=== PATIENT | female | born 1935 | race Caucasian/White ===

== ENCOUNTER 2016-12-21 06:11 | Day surgery (SDC) | payer OTHER ==
[~2016-12-21] VITALS: Ht 154.9 cm; Wt 81.9 kg
[~2016-12-21 06:11] MED LIST: ASPI325T PO; ATEN-100 PO; ATOR40TA PO; COZA50TA PO; ERYTOIN10 OP; GLIM2TAB PO; METF-324 PO; OXYB5TAB PO; SPIR50TA21 PO; ULTR50TA PO; ZOLO50TA PO
[2016-12-21 07:13] VITALS: BP 177/82; PULSE 62; RESP 18; TEMP 98; O2SAT 93
[2016-12-21 07:13] LABS: BASOPHIL % 0.5 % (0.0-2.0); EOSINOPHIL # 0.1 TH/MM3 (0-0.4); EOSINOPHIL % 2.1 % (0.0-4.0); HEMATOCRIT 37.8 % (35.0-46.0); HEMO FLAGS DIFF FINAL; LYMPH % 26.5 % (9.0-44.0); LYMPHOCYTE # 1.7 TH/MM3 (1.0-4.8); MEAN CELL VOLUME 88.2 FL (80.0-100.0); MEAN CORPUSCULAR HEMOGLOBIN 30.1 PG (27.0-34.0); MEAN CORPUSCULAR HGB CONC 34.1 % (32.0-36.0); MONO % 7.7 % (0.0-8.0); NEUT % 63.2 % (16.0-70.0); PLATELET COUNT 261 TH/MM3 (150-450); RED BLOOD COUNT 4.29 MIL/MM3 (4.00-5.30); RED CELL DISTRIBUTION WIDTH 13.7 % (11.6-17.2); WHITE BLOOD COUNT 6.3 TH/MM3 (4.0-11.0)
[2016-12-21 07:22] LABS: APTT (PATIENT) 24.9 SEC (24.3-30.1); PROTHROMBIN TIME - PATIENT 10.5 SEC (9.8-11.6)
[2016-12-21] MEDS ORDERED: METF1000 PO (07:28)
[2016-12-21] MEDS ORDERED: ASPI325T PO (07:28)
[2016-12-21] MEDS ORDERED: CALC600T4 PO (07:28)
[2016-12-21] MEDS ORDERED: OXYB5TAB PO (07:28)
[2016-12-21] MEDS ORDERED: MULT1TAB84 PO (07:28)
[2016-12-21] MEDS ORDERED: SERT-129 PO (07:28)
[2016-12-21] MEDS ORDERED: SPIR50TA PO (07:28)
[2016-12-21] MEDS ORDERED: AMLO2.5T PO (07:28)
[2016-12-21] MEDS ORDERED: ATEN50TA PO (07:28)
[2016-12-21] MEDS ORDERED: GLIM4TAB PO (07:28)
[2016-12-21] MEDS ORDERED: SITA1TAB2 PO (07:28)
[2016-12-21] MEDS ORDERED: ATOR40TA16 PO (07:28)
[2016-12-21] MEDS ORDERED: LOSA100T PO (07:28)
[2016-12-21] MEDS ORDERED: FENO48TA PO (07:28)
[2016-12-21 07:31] LABS: BICARBONATE 24.5 MEQ/L (21.0-32.0); POTASSIUM 4.2 MEQ/L (3.5-5.1)
[2016-12-21] MEDS ORDERED: NS 1000P @30 MLS/HR (KVO) IV SCH (08:15)
[2016-12-21] MEDS ORDERED: diphenhydrAMINE HCL 50 MG CAP PO SCH (08:15)
[2016-12-21] MEDS ORDERED: HEPARIN-NS/PF INJ 500 ML ONE (08:44)
[2016-12-21] MEDS ORDERED: MIDAZOLAM HCL 2 MG/2 ML VIAL ONE (08:57)
[2016-12-21] MEDS ORDERED: VERAPAMIL HCL 5 MG/2 ML VIAL ONE (08:57)
[2016-12-21] MEDS ORDERED: HEPARIN SODIUM - IV 10,000 UNITS/10 ML VIAL ONE (08:57)
[2016-12-21] MEDS ORDERED: NITROGLYCERIN INJ 5 ML ONE (08:59)
[2016-12-21] MEDS ORDERED: SODIUM CHLORIDE 0.9% FLUSH 5 ML FLUSH IVF PRN (10:15)
[2016-12-21] MEDS ORDERED: MISC INFORMATION XX ONE (10:15)
[2016-12-21] MEDS ORDERED: SODIUM CHLORIDE 0.9% FLUSH 5 ML FLUSH IV FLUSH PRN (10:30)
[2016-12-21] MEDS ORDERED: IOHEXOL 350 MG/ML 50 ML BTL (for Cath Lab) OTHER ONE ×2 (10:33→10:39)
--- NOTE | 2016-12-21 12:16 | RADRPT ---
EXAM DATE/TIME: 12/21/2016 11:14 [facility] COMPARISON: No previous studies available for comparison. INDICATIONS: Pre-op for aortic valve replacement. RADIATION DOSE: 7.07 CTDIvol (mGy) MEDICAL HISTORY: Hypertension. Cardiovascular disease Diabetes SURGICAL HISTORY: None. ENCOUNTER: Initial ACUITY: 1 day PAIN SCALE: 0/10 LOCATION: Chest TECHNIQUE: Volumetric scanning of the chest was performed. Using automated exposure control and adjustment of t he mA and/or kV according to patient size, radiation dose was kept as low as reasonably achievable to obtain optimal diagnostic quality images. FINDINGS: The heart is enlarged. Coronary artery calcifications are noted. Calcification involving the aortic valve is also noted. The ascending thoracic aorta measures 3.9 cm AP by 3.9 cm transverse dimension. Scattered at electasis and/or fibrotic scarring is noted within the lung bases. There is no alveolar consolidation. No pul monary edema is noted. No pulmonary nodule or mass is noted. There is a 18 mm calcified density within the right lobe of the liver posteriorly consistent with possible granuloma. High density is noted within the collecting sy stems of the kidneys bilaterally which has the appearance of contrast although the patient does not appear to have had contrast administration on recent studies. Differential includes contrast in the collection systems from rece nt contrast enhanced studies from an outside institution or possible calcified staghorn calculi. There is promin ence of the left adrenal gland measuring 2.5 x 2.1 cm. Degenerative changes and scoliosis of the thoracolumbar spine are noted. CONCLUSION: 1. Calcified aortic valve. Ascending thoracic aorta measures 3.9 cm AP by 3.9 cm transverse dimensio n. 2. Cardiomegaly and coronary artery calcifications. 3. Scattered fibrotic scarring and/or atelectasis within the lung bases. 4. High density opacifying the visualized portions of the renal collecting systems raising possibili ty of contrast although the patient has no definite recent studies at [place] which IV contrast admin istration. Differential includes recent outside contrast enhanced study or calcified staghorn calcul i. 5. Left adrenal nodule measuring 2.5 x 2.1 cm consistent with possible adrenal adenoma. 6. An 18 mm calcification within the posterior aspect of the right lobe of the liver consistent with probable granuloma. 7. Degenerative changes and scoliosis of the thoracolumbar spine. Vince Sin MD on December 21, 2016 at 11:56 Board Certified Radiologist. This report was verified electronically.
[2016-12-21 12:19] LABS: HEMOGLOBIN A1a 1.2 %; HEMOGLOBIN A1b 1.4 %; HEMOGLOBIN Ao 79.2 %; HEMOGLOBIN F 1.7 %; HEMOGLOBIN LA1C 3.2 %; HEMOGLOBIN P3 5.1 %
--- NOTE | 2016-12-21 12:37 | MA ---
cc: JOHNYESTEEDANIELA DATE 12/21/2016 PROCEDURE DATE OF 1935 PROCEDURES PERFORMED 1. Left heart catheterization 2. Right heart catheterization 3. LV/AO hemodynamics INDICATION Severe symptomatic aortic stenosis/preoperative evaluation APPROACH Right transradial and right basilic vein PROCEDURE DESCRIPTION Consent signed. The patient was brought into the cardiac pathology laboratory director in a fasting state. The right arm was prepped and draped in a sterile fashion. Using 1% lidocaine for local anesthesia and a micropuncture kit, an 8-Ugandan sheath was inserted into the right basilic vein and a 6-Ugandan sheath was inserted into the right radial vein. Then a [place]ricket was floated into wedge from the basilic vein, hemodynamics recorded, followed by blood samples for calculation of cardiac outputs. After finishing the right heart, we proceeded with the left heart cath. Selective right and left coronary angiography was performed with a JR-4, 5-Ugandan diagnostic catheter and a JL-3.5 diagnostic catheter. Angiography was taken in multiple views. The aortic valve was crossed in with an AL-1 and a stay-straight angle wire. Then the wire was exchanged for an Amplatz stiff wire and the 6-Ugandan dual lumen pigtail was advanced over a wire to the left ventricle. Simultaneous left ventricle and aortic pressures were recorded followed by a pullback. The patient tolerated well procedure well without complications. Estimated blood loss less than 50 cc Total contrast used 60 cc. The access sites were closed with a TR band and manual pressure. RESULTS Right heart cath pressures: The wedge pressure 11/8 mean 6. The main pulmonary artery 20/6 mean 13. The right ventricle 24/5 mean 5. The right atrium 8/6 mean 4. The left ventricular pressure was 214/14 with an LVEDP of 21. Ao lunfeuca201/[id number] mean of 104. The patient's mean gradient across the well was 45. The cardiac output was calculated to be 5.3. The aortic valve area by Hakki equation is 0.79. ANGIOGRAPHIC RESULTS RIGHT CORONARY ARTERY 1. The right coronary artery is a dominant vessel. It is tortuous with minimal luminal irregularities and LUL-III flow. The PDA is tortuous with minimal luminal irregularities and patent. 2. The left main is open, minimal calcification, no obstructive coronary artery disease. 3. The LAD is a transapical vessel. It has a 70% lesion proximally right at the takeoff of the first diagonal. The LAD wraps around has minimal irregularities distally. The first diagonal has an ostial 40% lesion. 4. The left circumflex is patent with LUL-III flow. It has nonobstructive CAD and the first of OM1 is patent. 5. The ramus is a prominent ramus. It is patent with nonobstructive coronary artery disease. CONCLUSION 1. Severe aortic stenosis with a calculated valve area of 0.79. 2. Single vessel coronary artery disease with a significant stenosis in the proximal LAD. 3. STS 4.1% RECOMMENDATIONS 1. Continue mini AVR vs. TAVR evaluation. 2. Continue aggressive medical management for CAD. 3. F/U with Dr. Daniela Mckay MD REJI Viera/CARISSA /10:12 AM /12:22 PM ANTONELLA
--- NOTE | 2016-12-21 14:30 | RADRPT ---
EXAM DATE/TIME: 12/21/2016 12:26 [facility] COMPARISON: CT THORAX W/O CONTRAST, December 21, 2016, 11:14. INDICATIONS : PreOp aortic valve replacement. MEDICAL HISTORY : Hypertension. Hypercholesterolemia. Hernia, hiatal. Coronary artery disease. Aortic stenosis. Diabete s, type II. Chronic kidney disease, stage III. SURGICAL HISTORY : Tonsillectomy. Cardiac catheterization. ENCOUNTER: Initial ACUITY: 1 day PAIN SCORE: 0/10 LOCATION: Bilateral neck PEAK SYSTOLIC VELOCITIES (cm/sec): ICA/CCA RATIO: Right: 2.0 Left: 2.0 ICA: Right: 128 Left: 118 CCA: Right: 64 Left: 58 ECA: Right: 57 Left: 67 VERTEBRAL: Right: 55 antegrade Left: 44 antegrade Elevated flow velocities and ICA/CCA ratios have been found to correlate with increased degrees of vessel stenosis, calculated as percentage of diameter relative to a normal segment of distal ICA/CCA FINDINGS: RIGHT CAROTID: There is elevated ratios with calcific plaque. Velocities are within normal limits. LEFT CAROTID: Ratios are elevated as well. Velocities are within normal limits. VERTEBRAL ARTERIES: Antegrade flow is seen in both vertebral arteries. MISCELLANEOUS: None. CONCLUSION: Elevated ratios bilaterally with normal Doppler velocities. CT angiography or MR ang iography offer more information. Jonas Stallings MD FACR on December 21, 2016 at 14:25 Board Certified Radiologist. This report was verified electronically.
--- NOTE | 2016-12-21 14:50 | EC ---
Study Study Date:12/21/2016 STUDY CONCLUSIONS SUMMARY - Left ventricle: The cavity size was normal. Wall thickness was normal. Systolic function was mildly reduced. The estimated ejection fraction was in the range of 45% to 50%. Wall motion was normal; there were no regional wall motion abnormalities. - Aortic valve: Calcified annulus. Trileaflet; normal thickness leaflets. Moderate to severe regurgitation. Valve area: 1.07cm^2 (Vmax). - Mitral valve: Mildly calcified annulus. - Pulmonic valve: Peak gradient: 16mm Hg (S). If LV function is below 40, please consider prescribing an ACEI or ARB or document rationale for non-use. PROCEDURE DATA STUDY STATUS: Elective. Procedure: Transthoracic echocardiography. Image quality was good. Scanning was performed from the parasternal, apical, and subcostal acoustic windows. Study completion: The patient tolerated the procedure well. Transthoracic echocardiography. M-mode, complete 2D, complete spectral Doppler, and color Doppler. Patient status: Inpatient. CARDIAC ANATOMY LEFT VENTRICLE: The cavity size was normal. Wall thickness was normal. Systolic function was mildly reduced. The estimated ejection fraction was in the range of 45% to 50%. Wall motion was normal; there were no regional wall motion abnormalities. AORTIC VALVE: Poorly visualized. Calcified annulus. Trileaflet; normal thickness leaflets. Doppler: Transvalvular velocity was increased more than expected, due to stenosis. There was no stenosis. Moderate to severe regurgitation. Valve area: 1.07cm^2 (Vmax). Mean gradient: 27mm Hg (S). Peak gradient: 42mm Hg (S). AORTA: Aortic root: The aortic root was normal in size. MITRAL VALVE: Mildly calcified annulus. Doppler: Transvalvular velocity was within the normal range. There was no evidence for stenosis. No regurgitation. Peak gradient: 3mm Hg (D). LEFT ATRIUM: The atrium was normal in size. RIGHT VENTRICLE: The cavity size was normal. Wall thickness was normal. PULMONIC VALVE: Doppler: Transvalvular velocity was within the normal range. There was no evidence for stenosis. No regurgitation. Peak gradient: 16mm Hg (S). TRICUSPID VALVE: Structurally normal valve. Doppler: Transvalvular velocity was within the normal range. No regurgitation. PULMONARY ARTERY: The main pulmonary artery was normal-sized. Systolic pressure was within the normal range. RIGHT ATRIUM: The atrium was normal in size. PERICARDIUM: There was no pericardial effusion. SYSTEMIC VEINS: Inferior vena cava: The vessel was normal in size. BASIC MEASUREMENTS ADULT NORMAL Left ventricle LV internal dimension, ED, chordal level, 47.5 mm 43-52 PLAX LV internal dimension, ES, chordal level, 37.9 mm 23-38 PLAX Fractional shortening, chordal level, PLAX *20 % >29 LV posterior wall thickness, ED 8.79 mm IVS/LVPW ratio, ED 0.93 <1.3 Ventricular septum Septal thickness, ED 8.14 mm Aortic valve Leaflet separation 19 mm 15-26 BASIC MEASUREMENTS ADULT NORMAL Aortic valve Leaflet separation 19 mm 15-26 Aorta Root diameter, ED 21 mm 20-37 Left atrium Anterior-posterior dimension, ES 36 mm 19-40 LA/aortic root ratio 1.71 DOPPLER MEASUREMENTS ADULT NORMAL Main pulmonary artery Pressure, S 14 mm Hg =30 Pressure, ED 14 mm Hg Aortic valve Peak velocity, S 325 cm/s Mean velocity, S 244 cm/s VTI, S 83.8 cm Mean gradient, S 27 mm Hg Peak gradient, S 42 mm Hg Valve area, Vmax 1.07 cm^2 Regurgitant velocity, ED 339 cm/s Regurgitant deceleration 629 cm/s^2 Regurgitant pressure half-time 1580 ms Regurgitant gradient, ED 46 mm Hg Mitral valve Peak E-wave velocity 85.9 cm/s Peak A-wave velocity 91.8 cm/s Deceleration time *246 ms 150-230 Peak gradient, D 3 mm Hg Peak E/A ratio 0.9 Maximal regurgitant velocity 234 cm/s Tricuspid valve Regurgitant peak velocity 217 cm/s Peak RV-RA gradient, S 19 mm Hg Maximal regurgitant velocity 217 cm/s Systemic veins Estimated CVP 10 mm Hg Right ventricle RV pressure, S *30 mm Hg <30 Pulmonic valve Peak velocity, S 197 cm/s Peak gradient, S 16 mm Hg Regurgitant velocity, ED 105 cm/s LEGEND: Mean values are shown as u=mean value. Asterisk (*) caro values outside specified normal range. Prepared and signed by Eric Santana [id number]
--- NOTE | 2016-12-21 15:34 | RADRPT ---
EXAM DATE/TIME: 12/21/2016 11:31 [facility] COMPARISON: No previous studies available for comparison. INDICATIONS : Evaluation for femoral cannulation. MEDICAL HISTORY : Hypercholesterolemia. Hypertension. Hernia, hiatal. Coronary artery disease. Aortic stenosis. Diabete s, type II. Chronic kidney disease, stage III. SURGICAL HISTORY : Tonsillectomy. Cardiac catheterization. ENCOUNTER: Initial ACUITY: 1 day PAIN SCORE: 0/10 LOCATION: Bilateral legs. AREA EVALUATED: Bilateral legs. FINDINGS: RT EIA 88 cm/s BODY DIE MAKER 84 cm/s DPA 68 cm/s SFA PROX 93 cm/s MID 84 cm/s DIST 78 cm/s POP 62 cm/s LT EIA 170 cm/s BODY DIE MAKER 139 cm/s DPA 83 cm/s SFA PROX 156 cm/s MID 91 cm/s DIST 113 cm/s POP 71 cm/s There is triphasic flow in all vessels. 3 vessels are identified below the knee. CONCLUSION: Negative arterial evaluation of the lower extremities. Clif Soler MD on December 21, 2016 at 15:26 Board Certified Radiologist. This report was verified electronically.
[2016-12-21 17:37] LABS: BACTERIA, URINE OCC /hpf; BLOOD, URINE NEG (NEG); COMMENT (UR) CULT NOT INDICATED; CULTURE IF INDICATED CULT NOT INDICATED; GLUCOSE,URINE TRACE mg/dL (NEG); KETONE, URINE NEG (NEG); NITRITE,URINE NEG (NEG); SQUAMOUS EPITHELIAL CELL URINE <1 /hpf (0-5); URINE COLOR YELLOW (YELLW/STRAW)
[2016-12-21] MEDS ORDERED: SODIUM CHLORIDE 0.9% FLUSH 5 ML FLUSH IVF SCH (21:00)
[2016-12-21] MEDS ORDERED: SODIUM CHLORIDE 0.9% FLUSH 5 ML FLUSH IV FLUSH SCH (21:00)
--- NOTE | 2016-12-23 12:58 | EKG ---
Date Performed: 12/21/2016 Time Performed: 07:17:22 PTAGE: 81 years EKG: Sinus bradycardia Leftward axis Possible anterior infarct - age undetermined Inferior T wav e changes are nonspecific Compared to prior tracing no significant change Abnormal ECG PREVIOUS TRACING : 04/27/2015 11.10 DOCTOR: Norm Adkins Interpretating Date/Time 12/23/2016 12:54:18
--- NOTE | 2017-01-21 13:24 | RADRPT ---
EXAM DATE/TIME: 12/21/2016 11:31 [facility] Corrected on: January 21, 2017; corrected exam name GER COMPARISON: No previous studies available for comparison. INDICATIONS : Evaluation for femoral cannulation. MEDICAL HISTORY : Hypercholesterolemia. Hypertension. Hernia, hiatal. Coronary artery disease. Aortic stenosis. Diabete s, type II. Chronic kidney disease, stage III. SURGICAL HISTORY : Tonsillectomy. Cardiac catheterization. ENCOUNTER: Initial ACUITY: 1 day PAIN SCORE: 0/10 LOCATION: Bilateral legs. AREA EVALUATED: Bilateral legs. FINDINGS: RT EIA 88 cm/s LEAD MANUFACTURING ENGINEERING TECH 84 cm/s DPA 68 cm/s SFA PROX 93 cm/s MID 84 cm/s DIST 78 cm/s POP 62 cm/s LT EIA 170 cm/s LEAD MANUFACTURING ENGINEERING TECH 139 cm/s DPA 83 cm/s SFA PROX 156 cm/s MID 91 cm/s DIST 113 cm/s POP 71 cm/s There is triphasic flow in all vessels. 3 vessels are identified below the knee. CONCLUSION: Negative arterial evaluation of the lower extremities. Clif Soler MD on December 21, 2016 at 15:26 Board Certified Radiologist. This report was verified electronically. DR [employer] on January 21, 2017 at 13:23 Board Certified Radiologist. This report was verified electronically.
== END 2016-12-21 17:50 | disposition home or self-care (01) ==
LOC: HCAT 06:11 → HDIC 06:11 → HCAT 17:50
PROVIDERS: ATTEND Radiology Vascular & Interventional Radiology
DX: I35.0 Nonrheumatic aortic (valve) stenosis (principal); I25.10 Atherosclerotic heart disease of native coronary artery without angina pectoris; E11.22 Type 2 diabetes mellitus with diabetic chronic kidney disease; I12.9 Hypertensive chronic kidney disease with stage 1 through stage 4 chronic kidney disease, or unspecified chronic kidney disease; N18.3 Chronic kidney disease, stage 3 (moderate); E78.00 Pure hypercholesterolemia, unspecified; Z79.84 Long term (current) use of oral hypoglycemic drugs
CPT/HCPCS: 71250; 80048; 81001; 82810; 83036; 85025; 85610; 85730; 87641; 93005; 93306; 93456; 93880; 93925; C1769; C1893; J1644; J2250; J3010; J7030; Q0163; 76999; Q9967

== ENCOUNTER → 2017-01-21 | Outpatient (CLI) | payer OTHER ==
[~2017-01-21] MED LIST changes: +AMLO2.5T PO; -ATEN-100 PO; +ATEN50TA PO; -ATOR40TA PO; +ATOR40TA16 PO; +CALC600T4 PO; -COZA50TA PO; -ERYTOIN10 OP; +FENO48TA PO; -GLIM2TAB PO; +GLIM4TAB PO; +IOHEXOL 350 MG/ML 10 ML VIAL (for RAD DIAG) IV ONE; +LOSA100T PO; -METF-324 PO; +METF1000 PO; +MULT1TAB84 PO; +SERT-129 PO; +SITA1TAB2 PO; +SPIR50TA PO; -SPIR50TA21 PO; -ULTR50TA PO; -ZOLO50TA PO
--- NOTE | 2017-01-21 15:06 | RADRPT ---
EXAM DATE/TIME: 01/21/2017 13:48 [facility] COMPARISON: No previous studies available for comparison. INDICATIONS : Evaluate aortic calcification and femoral access for cannulation. RADIATION DOSE: 11.82 CTDIvol (mGy) MEDICAL HISTORY : Cardiovascular disease. Diabetes mellitus type 2. SURGICAL HISTORY : None. ENCOUNTER: Initial ACUITY: 1 day PAIN SCALE: 0/10 LOCATION: Right anterior TECHNIQUE: Volumetric scanning was performed using a multi-row detector CT scanner. The data was post processed with a variety of visualization algorithms including full volume maximum intensity pr ojection, multi-planar sliding thin slab reformation, curved planar reformation, and surface renderin g techniques. Using automated exposure control and adjustment of the mA and/or kV according to patie nt size, radiation dose was kept as low as reasonably achievable to obtain optimal diagnostic quality images. FINDINGS: Scans were obtained from the thoracic inlet through the common femorals. There are no suspicious lung lesions identified. There is mild compensated cardiomegaly. Moderate c oronary artery calcifications are seen including calcifications in both the LAD, circumflex and right coronary. Calcifications are seen in the ascending and descending aorta. There is no aneurysmal dilatation. The right common iliac, external iliac and common femoral are widely patent. The left common iliac, external iliac and common femoral are widely patent. There is moderate tortuo sity on the left when compared to the right secondary to scoliosis. The liver, spleen, pancreas, adrenals and kidneys are unremarkable. There is no ascites or adenopathy. The bladder is unremarkable. CONCLUSION: Moderate atherosclerotic vascular disease as described above. Jonas Stallings MD FACR on January 21, 2017 at 14:22 Board Certified Radiologist. This report was verified electronically.
== END ==
LOC: HRAD 11:42
PROVIDERS: ATTEND Thoracic Surgery (Cardiothoracic Vascular Surgery)
DX: I35.0 Nonrheumatic aortic (valve) stenosis (principal)
CPT/HCPCS: 74174; Q9967

== ENCOUNTER → 2017-02-27 | Outpatient (CLI) | payer OTHER ==
[~2017-02-27] MED LIST changes: -IOHEXOL 350 MG/ML 10 ML VIAL (for RAD DIAG) IV ONE
--- NOTE | 2017-02-27 11:52 | RADRPT ---
EXAM DATE/TIME: 02/27/2017 11:33 [facility] COMPARISON: CHEST SINGLE AP, December 22, 2013, 12:07. INDICATIONS : Evaluate for pneumonia, pneumothorax, and communicable diseases. Pre-op aortic valv e replacement MEDICAL HISTORY : Diabetes mellitus type II. Hypertension SURGICAL HISTORY : None. ENCOUNTER: Initial ACUITY: 1 day PAIN SCORE: 0/10 LOCATION: chest FINDINGS: PA and lateral views of the chest demonstrate the lungs to be symmetrically aerated without evidence of mass, infiltrate or effusion. There is symmetric and diffuse prominence of interstitial markings throughout both lungs. The cardiomediastinal contours are unremarkable with stable tortuosity descen ding thoracic aorta. Moderate S-shaped scoliosis in the lumbar spine.. CONCLUSION: Mild interstitial prominence. No focal infiltrates seen. Samson Ojeda MD on February 27, 2017 at 11:49 Board Certified Radiologist. This report was verified electronically.
--- NOTE | 2017-02-27 12:20 | RADRPT ---
EXAM DATE/TIME: 02/27/2017 11:45 [facility] COMPARISON: US CAROTID ARTERIES, December 21, 2016, 12:26. INDICATIONS : Preop heart valve surgery. MEDICAL HISTORY : Hypertension. Diabetes mellitus type 2. SURGICAL HISTORY : Tonsillectomy. ENCOUNTER: Initial ACUITY: 1 day PAIN SCORE: 0/10 LOCATION: Bilateral neck PEAK SYSTOLIC VELOCITIES (cm/sec): ICA/CCA RATIO: Right: 1.8 Left: 1.3 ICA: Right: 91 Left: 79 CCA: Right: 51 Left: 61 ECA: Right: 48 Left: 41 VERTEBRAL: Right: 55 antegrade Left: 45 antegrade Elevated flow velocities and ICA/CCA ratios have been found to correlate with increased degrees of vessel stenosis, calculated as percentage of diameter relative to a normal segment of distal ICA/CCA FINDINGS: RIGHT CAROTID: There is minimal plaque measured region of the carotid bulb without significant stenosis. The wavefo joanna are within normal limits. LEFT CAROTID: No significant stenosis is visualized. The waveforms are within normal limits. VERTEBRAL ARTERIES: Antegrade flow is seen in both vertebral arteries. CONCLUSION: Dynamic profile both carotids is characteristic of less than 50% stenosis. Samson Ojead MD on February 27, 2017 at 12:17 Board Certified Radiologist. This report was verified electronically.
--- NOTE | 2017-02-27 20:23 | EKG ---
Date Performed: 02/27/2017 Time Performed: 10:26:51 PTAGE: 81 years EKG: Sinus rhythm MARKED LEFT AXIS DEVIATION VOLTAGE CRITERIA FOR LVH ABNORMAL ECG PREVIOUS TRACING : 12/21/2016 07.17 Compared to prior tracing no significant change DOCTOR: Paul Wilson Interpretating Date/Time 02/27/2017 20:21:13
--- NOTE | 2017-03-08 08:03 | RSPPFT ---
DATE OF PROCEDURE: 02/27/17 COMMENTS: The forced vital capacity, FEV1/FVC ratio, FEV1% and FEF 25-75 are all normal. IMPRESSION: This is a normal spirometry.
== END ==
LOC: HRSP 09:40
PROVIDERS: ATTEND Thoracic Surgery (Cardiothoracic Vascular Surgery)
DX: Z01.810 Encounter for preprocedural cardiovascular examination (principal); R94.31 Abnormal electrocardiogram [ECG] [EKG]; I35.0 Nonrheumatic aortic (valve) stenosis; E11.9 Type 2 diabetes mellitus without complications; I10 Essential (primary) hypertension
CPT/HCPCS: 71020; 93005; 93880; 94010

== ENCOUNTER 2017-03-12 05:14 | Inpatient (IN) | payer OTHER, MEDICARE ==
[~2017-03-12] VITALS: Ht 154.9 cm; Wt 81.5 kg
[2017-03-12] VITALS (9 sets, daily range): BP systolic 127–146; BP diastolic 43–66; PULSE 51–79; RESP 16–20; TEMP 96.6–98.5; O2SAT 93–97
[~2017-03-12 05:14] MED LIST changes: +ACETAMINOPHEN 1000 MG/100 ML VIAL IV ONE; +AMINOCAPROIC ACID INJ 250 MG/ML 20 ML VIAL IV ONE; +ARTIFICIAL TEARS OPTH OINT 3.5 APPLIC/3.5 GM TUBO ONE; +CALCIUM CHLORIDE 10% SOLN 1 GRAM/10 ML SYR IV ONE; +HEPARIN SODIUM - SQ 10,000 UNITS/ML VIAL SQ ONE; +LIDOCAINE HCL 1% 30 ML VIAL OTHER ONE; +MAGNESIUM SULFATE 1000 MG/2 ML VIAL (PED) IV ONE; +MILRINONE LACTATE 20 MG/20 ML VIAL IV ONE; +PHENYLEPHRINE HCL 10 MG/ML VIAL IV ONE; +PROPOFOL 1000 MG/100 ML INJ 100 ML IV ONE; +PROTAMINE SULFATE 250 MG/25 ML VIAL IV ONE; +VECURONIUM BROMIDE 10 MG VIAL IV ONE
[2017-03-12] MEDS ORDERED: INSULIN REGULAR 100 UNITS in NS 100 ML IV SCH (06:00)
[2017-03-12] MEDS ORDERED: INSULIN HUMAN REGULAR 1,000 UNITS/10 ML VIAL SQ PRN (06:00)
[2017-03-12] MEDS ORDERED: POVIDONE IODINE 5% (ANTISEPSIS KIT) 4 APPLICATIONS EACH NARE PRN (06:00)
[2017-03-12] MEDS ORDERED: CEFAZOLIN 500 MG in NS IRR BTL 500 ML IRRIGATION SCH (06:00)
[2017-03-12] MEDS ORDERED: CHLORHEXIDINE GLUCONATE 4% SOLN 120 ML BTL TOPICAL SCH (06:00)
[2017-03-12] MEDS ORDERED: CHLORHEXIDINE GLUCONATE 2 % 1 PACK (2 CLOTHS) TOPICAL PRN (06:00)
[2017-03-12] MEDS ORDERED: LACTATED RINGER'S 1000 ML IV PRN (06:00)
[2017-03-12] MEDS ORDERED: SODIUM CHLORID 0.9% 500 ML IV PRN (06:00)
[2017-03-12] MEDS ORDERED: METOPROLOL TARTRATE 25 MG TAB PO SCH (06:00)
[2017-03-12] MEDS ORDERED: ceFAZolin 2 GM PREMIX 50 ML IV SCH (06:00)
[2017-03-12] MEDS ORDERED: METOPROLOL TARTRATE 25 MG TAB PO PRN (06:00)
[2017-03-12] MEDS ORDERED: VANCOMYCIN HCL 1000 MG VIAL ONE (06:29)
[2017-03-12] MEDS ORDERED: HEPARIN SODIUM - SQ 10,000 UNITS/ML VIAL ONE ×2 (06:30→08:35)
[2017-03-12] MEDS ORDERED: methylPREDNISolone SOD SUCC 125 MG/2 ML VIAL ONE (06:30)
[2017-03-12] MEDS ORDERED: ceFAZolin 2 GM PREMIX 50 ML ONE (06:30)
[2017-03-12] MEDS ORDERED: BUPIVACAINE HCL PF 0.5% 30 ML VIAL ONE (06:54)
[2017-03-12] MEDS ORDERED: CUSTODIOL HTK IRR SOLN 1,000 ML ONE (08:04)
[2017-03-12] MEDS ORDERED: SODIUM BICARBONATE 8.4% INJ 50 MEQ/50 ML SYR ONE (08:05)
[2017-03-12] MEDS ORDERED: MANNITOL INJ 50 ML ONE (08:05)
[2017-03-12] MEDS ORDERED: HEPARIN SODIUM - IV 10,000 UNITS/10 ML VIAL ONE (08:06)
[2017-03-12] MEDS ORDERED: POTASSIUM CHLORIDE 20 MEQ/10 ML VIAL ONE (08:07)
[2017-03-12] MEDS ORDERED: ALBUMIN HUMAN 25% 12.5 GM/50 ML BAGP IV ONE (08:07)
[2017-03-12] MEDS: MUPIROCIN 2% OINT 22 GM TUBE EACH NARE SCH ×2 (09:00→20:08)
[2017-03-12] MEDS ORDERED: NITROGLYCERIN 50 MG/DEXTROSE 5% SOLN 250 ML BTL IV ONE (09:22)
[2017-03-12] MEDS ORDERED: DEXMEDETOMIDINE HCL 200 MCG/2 ML VIAL IV ONE (09:22)
[2017-03-12] MEDS ORDERED: LACTATED RINGER'S 1000 ML INJ 2,000 ML IV ONE (09:23)
[2017-03-12] MEDS ORDERED: SODIUM CHLOR 0.9% 250 ML INJ 500 ML IV ONE (09:23)
[2017-03-12] MEDS ORDERED: PHENYLEPHRINE HCL 10 MG/ML VIAL IV ONE (09:23)
[2017-03-12] MEDS ORDERED: SODIUM CHLORID 0.9% 500 ML INJ 500 ML IV ONE (09:24)
[2017-03-12] MEDS ORDERED: NORMOSOL R INJ 2,000 ML IV ONE (09:24)
[2017-03-12] MEDS ORDERED: Post-op Orders (for Pharmacy) MISC OTHER ONE (14:00)
[2017-03-12] MEDS ORDERED: ACETAMINOPHEN 650 MG SUPP RECTAL PRN (14:00)
[2017-03-12] MEDS ORDERED: hydrALAZINE HCL 20 MG/ML VIAL IV PRN (14:00)
[2017-03-12] MEDS ORDERED: CALCIUM CHLORIDE INJ 1 GM in SODIUM CHLORIDE 0.9% INJ 100 ML IV PRN (14:00)
[2017-03-12] MEDS ORDERED: SODIUM CHLORIDE 0.9% FLUSH 10 ML FLUSH IV FLUSH PRN (14:00)
[2017-03-12] MEDS ORDERED: MAGNESIUM SULFATE INJ 2 GM in SODIUM CHLORIDE 0.9% INJ 100 ML IV PRN (14:00)
[2017-03-12] MEDS ORDERED: POTASSIUM CHLOR 20 MEQ PREMIX 100 ML IV PRN ×2 (14:00)
[2017-03-12] MEDS ORDERED: CALCIUM CHLORIDE 10% 1 GRAM/10 ML VIAL IV PRN (14:00)
[2017-03-12] MEDS ORDERED: DEXTROSE 50% IN WATER 50 ML VIAL(D50) IV PUSH PRN (14:00)
[2017-03-12] MEDS ORDERED: METOPROLOL TARTRATE 5 MG/5 ML VIAL IV PUSH PRN (14:00)
[2017-03-12] MEDS ORDERED: POTASSIUM CHLORIDE 20 MEQ CONTROLLED RELEASE TAB PO PRN ×2 (14:00)
[2017-03-12] MEDS ORDERED: ceFAZolin INJ 1,000 MG VIAL IV ONE (14:10)
--- NOTE | 2017-03-12 14:14 | PD.OP ---
cc: Eric Santana MD; Daniela Mckay MD Operative Report Date of Surgery: March 12, 2017 Preoperative Diagnosis: (1) Aortic stenosis (2) Diastolic CHF due to valvular disease Postoperative Diagnosis: same Procedure: Minimally invasive AVR with a 21 Intuity tissue valve Left femoral percutaneous artery and vein cannulation LORA Anesthesia: Dr. Elkins Surgeon: Daniela Mckay [employer] Information Clerk(s): Deric Rubin Operation and Findings: The risks, benefits, complications, treatment options, and expected outcomes were discussed with the patient. The possibilities of reaction to medication, pulmonary aspiration, perforation of viscus, bleeding, recurrent infection, the need for additional procedures, failure to diagnose a condition, and creating a complication requiring transfusion or operation were discussed with the patient. The patient concurred with the proposed plan, giving informed consent. The site of surgery properly noted/marked. The patient was taken to Operating Room, identified as Marlaritika Stanley and the procedure verified as Minimally Invasive Aortic Valve Replacement. A Time Out was held and the above information confirmed. Standard monitoring lines and Morales catheter were placed. General anesthesia was induced. The patient was prepped and draped in a sterile fashion. The patient was heparinized for cardiopulmonary bypass. The left femoral artery was cannulated with a 17 [employer] arterial cannula using a Seldinger technique followinf placement of 2 Perclose devices. The left femoral vein was cannulated with a 21 [employer] cannula under LORA guidance. A 6 cm right anterior thoracotomy was performed and the 3rd rib was shingled. The right internal mammary artery and vein were ligated and divided. An Hussein retractor was placed followed by a small chest retractor. The pericardium was opened and a pericardial sling was created using interrupted 0 silk sutures. A small 1 cm incision was made at the 6th intercostal space and an LV vent and pericardial suction were placed through this access port. The aorta was dissected posteriorly for crossclamp placement. Antegrade Custodiol cardioplegia were employed. Additionally, hand-held coronary cardioplegia cannula was used during the procedure. The patient was placed on cardiopulmonary bypass. An aortic cross-clamp was applied and the heart was arrested using cold blood cardioplegia delivered through a 14F catheter. The aorta was opened above the sinotubular ridge and the aortic valve was exposed. The right and left coronary was directly cannulated in addition and cardioplegia was administered. On opening the aorta, the valve appeared calcified. The valve was resected as well as all annular calcification, sized for a 21 Intuity tissue valve which seated and balloon deployed after placing 3 2-0 Ticron sutures through the annulus. The valve seated well. The aorta was closed with running 4-0 Prolene suture. Temporary ventricular pacing wires were placed and brought out in the usual manner. The patient systemically rewarmed. The heart was vigorously deaired with a clamp on. The clamp was removed, deairing continued. The patient was easily weaned from cardiopulmonary bypass. Decannulation was carried out without incident. Protamine was given. There was no adverse reaction. Intraoperative LORA following the procedure showed a well-seated aortic valve with no perivalvular leak and preserved ventricular function. Wound was checked for hemostasis was obtained using electrocautery. A 32F chest tube was placed through the prior port incision and secured with a 0- silk suture.The 3rd rib was reapproximated to the sternum and adjacent rib with a 0 Vicryl suture. The fascia and pectoralis were closed with 0 Vicryl. The subcutaneous tissue was closed using a running 3-0 Monocryl suture. The skin was closed with 4-0 Monocryl. The groin was closed in 2 layers. Sterile dressings were placed. At the end of the operation, all sponge, instruments, and needle counts were correct. The patient was transferred to the CVICU in stable condition. Daniela Mckay MD March 12, 2017 14:14
[2017-03-12] MEDS ORDERED: MIDAZOLAM HCL 5 MG/5 ML VIAL ONE ×2 (14:52)
[2017-03-12] MEDS ORDERED: fentaNYL CITRATE 1000 MCG/20 ML VIAL ONE (14:53)
[2017-03-12] MEDS ORDERED: CLEVIDIPINE INJ 50 ML IV SCH (15:00)
[2017-03-12] MEDS ORDERED: LACTATED RINGER'S 1000 ML INJ 500 ML IV PRN (15:00)
[2017-03-12] MEDS ORDERED: ONDANSETRON HCL 4 MG/2 ML VIAL IV PUSH PRN (15:00)
[2017-03-12] MEDS ORDERED: INSULIN REGULAR (IV INFUSION) 100 UNITS in SODIUM CHLORIDE 0.9% INJ 99 ML IV SCH (15:00)
[2017-03-12] MEDS: POTASSIUM CHLOR 20 MEQ PREMIX 100 ML IV PRN (15:16)
--- NOTE | 2017-03-12 15:25 | RADRPT ---
EXAM DATE/TIME: 03/12/2017 14:45 [facility] COMPARISON: CHEST SINGLE AP, December 22, 2013, 12:07. INDICATIONS : Post CABG. MEDICAL HISTORY : None. SURGICAL HISTORY : None. ENCOUNTER: Initial ACUITY: 1 day PAIN SCORE: Non-responsive. LOCATION: Bilateral chest FINDINGS: A single portable frontal view the chest shows the tip of the endotracheal tube 3 cm cephalad to the rashel. Nasogastric tube courses off the inferior margin of the film. A right-sided central line obse rved. Right thoracostomy tube. No pneumothoraces. No effusions. No infiltrates. Ossific heart valve. Heart mildly enlarged. CONCLUSION: 1. Lines and tubes as detailed above. 2. No pneumothoraces. Samson White Jr., MD on March 12, 2017 at 15:22 Board Certified Radiologist. This report was verified electronically.
[2017-03-12] MEDS: ACETAMINOPHEN 1000 MG/100 ML VIAL IV SCH ×2 (15:53→20:08)
[2017-03-12] MEDS ORDERED: RESP: RACEPINEPHRINE 2.25% 0.5 ML NEB NEB PRN (16:15)
[2017-03-12] MEDS: RESP: ALBUTEROL 2.5 MG/IPRATROPIUM 0.5 MG NEB (PRN) NEB (18:20)
[2017-03-12] MEDS: oxyCODONE/ACETAMINOPHEN 5 MG/325 MG TAB PO PRN ×2 (19:50→23:31)
[2017-03-12] MEDS: ATORVASTATIN 40 MG TAB PO SCH (20:08)
[2017-03-12] MEDS: SODIUM CHLORIDE 0.9% FLUSH 10 ML FLUSH IV FLUSH SCH (20:08)
[2017-03-12] MEDS: RESP: ALBUTEROL 2.5 MG/IPRATROPIUM 0.5 MG NEB (SCH) NEB (21:52)
[2017-03-13] VITALS (15 sets, daily range): BP systolic 120–158; BP diastolic 44–78; PULSE 51–82; RESP 12–20; TEMP 98.1–98.8; O2SAT 92–95
[2017-03-13] MEDS: oxyCODONE/ACETAMINOPHEN 5 MG/325 MG TAB PO PRN ×5 (02:39→23:25)
[2017-03-13] MEDS: ACETAMINOPHEN 1000 MG/100 ML VIAL IV SCH ×2 (02:45→07:36)
[2017-03-13] MEDS: RESP: ALBUTEROL 2.5 MG/IPRATROPIUM 0.5 MG NEB (SCH) NEB (03:26)
[2017-03-13 05:04] LABS: BICARBONATE 23.4 MEQ/L (21.0-32.0); HEMATOCRIT 29.3 % (35.0-46.0); MAGNESIUM 1.6 MG/DL (1.5-2.5); MEAN CELL VOLUME 88.5 FL (80.0-100.0); MEAN CORPUSCULAR HEMOGLOBIN 29.5 PG (27.0-34.0); MEAN CORPUSCULAR HGB CONC 33.4 % (32.0-36.0); PLATELET COUNT 138 TH/MM3 (150-450); POTASSIUM 3.4 MEQ/L (3.5-5.1); REVIEW FLAG FINAL; WHITE BLOOD COUNT 11.3 TH/MM3 (4.0-11.0)
--- NOTE | 2017-03-13 05:13 | RADRPT ---
EXAM DATE/TIME: 03/13/2017 04:04 [place] COMPARISON: CHEST SINGLE AP, March 12, 2017, 14:45. INDICATIONS : Shortness of breath. MEDICAL HISTORY : Diabetes mellitus type II. Hypertension. SURGICAL HISTORY : None. ENCOUNTER: Initial ACUITY: 1 day PAIN SCORE: 0/10 LOCATION: Bilateral chest FINDINGS: The cardiac silhouette is enlarged in transverse diameter. A right sided internal jugular vein cathet er is in place without pneumothorax with its tip in the superior vena cava. There are findings of con gestive heart failure with interstitial and alveolar opacity bilaterally. The findings are improved w hen compared with the prior exam. CONCLUSION: 1. Improving congestive heart failure Clif Soler MD on March 13, 2017 at 5:11 Board Certified Radiologist. This report was verified electronically.
[2017-03-13] MEDS: POTASSIUM CHLOR 20 MEQ PREMIX 100 ML IV PRN (05:38)
[2017-03-13] MEDS: PANTOPRAZOLE SOD 40 MG DELAYED RELEASE TAB PO SCH (05:56)
[2017-03-13] MEDS: MAGNESIUM SULFATE INJ 2 GM in SODIUM CHLORIDE 0.9% INJ 100 ML IV PRN (05:56)
--- NOTE | 2017-03-13 07:02 | PD.CAR.PN ---
CVT Progress Note CVT: POD #: 1 Subjective/Hospital Course: c/o incisional pain, confused Objective: Vital Signs Date Time Temp Pulse Resp B/P Pulse Ox O2 Delivery O2 Flow Rate FiO2 03/13/17 04:00 97 Non-Rebreather 100 03/13/17 04:00 51 03/13/17 03:45 89 Simple Mask 10.00 03/13/17 03:00 98.8 56 12 125/51 94 129/58 03/13/17 03:00 54 03/13/17 00:00 95 Nasal Cannula 4.00 03/13/17 00:00 51 03/12/17 23:00 54 03/12/17 23:00 98.5 51 16 129/45 95 146/66 03/12/17 22:00 95 Nasal Cannula 5.00 03/12/17 20:00 56 03/12/17 20:00 94 Nasal Cannula 5.00 03/12/17 19:00 98.1 79 16 127/48 94 136/63 03/12/17 19:00 54 03/12/17 18:10 94 Nasal Cannula 4 03/12/17 18:10 93 Nasal Cannula 5.00 03/12/17 17:33 50 03/12/17 16:23 12 03/12/17 16:16 99 Mechanical Ventilator 80 03/12/17 16:11 61 03/12/17 16:00 80 03/12/17 15:24 97 100 03/12/17 15:15 100 03/12/17 15:00 96.6 54 17 143/58 97 Automatic Cuff 03/12/17 14:25 93 100 Labs: Laboratory Tests Test 03/13/17 04:26 White Blood Count 11.3 TH/MM3 (4.0-11.0) Red Blood Count 3.30 MIL/MM3 (4.00-5.30) Hemoglobin 9.8 GM/DL (11.6-15.3) Hematocrit 29.3 % (35.0-46.0) Mean Corpuscular Volume 88.5 FL (80.0-100.0) Mean Corpuscular Hemoglobin 29.5 PG (27.0-34.0) Mean Corpuscular Hemoglobin 33.4 % Concent (32.0-36.0) Red Cell Distribution Width 14.0 % (11.6-17.2) Platelet Count 138 TH/MM3 (150-450) Mean Platelet Volume 8.9 FL (7.0-11.0) Sodium Level 144 MEQ/L (136-145) Potassium Level 3.4 MEQ/L (3.5-5.1) Chloride Level 111 MEQ/L (98-107) Carbon Dioxide Level 23.4 MEQ/L (21.0-32.0) Anion Gap 10 MEQ/L (5-15) Blood Urea Nitrogen 19 MG/DL (7-18) Creatinine 1.02 MG/DL (0.50-1.00) Estimat Glomerular Filtration 52 ML/MIN (>89) Rate Random Glucose 133 MG/DL (74-106) Calcium Level 8.1 MG/DL (8.5-10.1) Magnesium Level 1.6 MG/DL (1.5-2.5) Result Diagram: 03/13/1742503/13/17425 Imaging: Last 24 hours Impressions Chest X-Ray 03/13/17 0500 Signed Impressions: Service Date/Time: Monday, March 13, 2017 04:04 - CONCLUSION: 1. Improving congestive heart failure Clif Soler MD Cardiovascular: RRR Telemetry: SB Pulmonary: Decreased BS bilat GI/: Decreased BS, NT Incision: dry and intact CT: ~250 ml since OR Plan: Diurese Wean O2 Advance diet Ambulate x 6 PT/OT No beta delfin yet due to bradycardia and O2 requirements Wean O2 Consider transfer later today. Daniela Mckay MD March 13, 2017 07:02
[2017-03-13] MEDS: FUROSEMIDE 40 MG/4 ML VIAL IV PUSH SCH (07:37)
--- NOTE | 2017-03-13 08:29 | EKG ---
Date Performed: 03/13/2017 Time Performed: 05:57:08 PTAGE: 81 years EKG: Sinus bradycardia Left axis deviation Left bundle branch block Possible inferior infarct - age undetermined Abnormal ECG PREVIOUS TRACING : 02/27/2017 10.26 DOCTOR: Fabio Steiner Interpretating Date/Time 03/13/2017 08:28:56
[2017-03-13] MEDS: MUPIROCIN 2% OINT 22 GM TUBE EACH NARE SCH ×2 (09:00→21:00)
[2017-03-13] MEDS: TOLTERODINE TARTRATE 2 MG CAP LA PO SCH (09:05)
[2017-03-13] MEDS: FENOFIBRATE 48 MG TAB PO SCH (09:05)
[2017-03-13] MEDS: ASPIRIN 81 MG CHEW TAB PO SCH (09:05)
[2017-03-13] MEDS: SERTRALINE HCL 100 MG TAB PO SCH (09:05)
[2017-03-13] MEDS: MULTIVITAMINS/MINERALS THERAPEUTIC TAB PO SCH (09:06)
[2017-03-13] MEDS: SODIUM CHLORIDE 0.9% FLUSH 10 ML FLUSH IV FLUSH SCH ×2 (09:07→21:32)
[2017-03-13] MEDS: RESP: ALBUTEROL 2.5 MG/IPRATROPIUM 0.5 MG NEB (PRN) NEB (09:54)
[2017-03-13] MEDS ORDERED: SOD PHOSPHATE/SOD BIPHOSPHATE (ADULT) ENEMA 133ML RECTAL PRN (15:00)
[2017-03-13] MEDS ORDERED: BISACODYL 10 MG SUPP RECTAL PRN (15:00)
[2017-03-13] MEDS ORDERED: DEXTROSE 50% IN WATER 50 ML VIAL(D50) IV PRN (15:00)
[2017-03-13] MEDS ORDERED: GLUCAGON 1 MG/ML VIAL OTHER PRN (15:00)
[2017-03-13] MEDS: INSULIN ASPART SUPPLEMENTAL SCALE SQ SCH ×2 (18:37→21:31)
[2017-03-13] MEDS: SENNOSIDES 8.6 MG TAB PO SCH (21:31)
[2017-03-13] MEDS: DOCUSATE SODIUM 100 MG CAP PO SCH (21:31)
[2017-03-13] MEDS: ATORVASTATIN 40 MG TAB PO SCH (21:31)
[2017-03-14] VITALS (28 sets, daily range): BP systolic 125–163; BP diastolic 64–74; PULSE 61–80; RESP 17–19; TEMP 98.1–99.3; O2SAT 90–100
[2017-03-14] MEDS: INSULIN ASPART SUPPLEMENTAL SCALE SQ SCH ×6 (02:12→21:00)
[2017-03-14] MEDS: oxyCODONE/ACETAMINOPHEN 5 MG/325 MG TAB PO PRN ×2 (03:39→09:12)
[2017-03-14] MEDS: PANTOPRAZOLE SOD 40 MG DELAYED RELEASE TAB PO SCH (05:54)
[2017-03-14 06:19] LABS: AUTOMATED NEUTROPHIL # 10.4 TH/MM3 (1.8-7.7); BASOPHIL % 0.2 % (0.0-2.0); EOSINOPHIL % 0.1 % (0.0-4.0); HEMATOCRIT 28.6 % (35.0-46.0); HEMO FLAGS DIFF FINAL; LYMPH % 9.9 % (9.0-44.0); LYMPHOCYTE # 1.2 TH/MM3 (1.0-4.8); MEAN CELL VOLUME 87.8 FL (80.0-100.0); MEAN CORPUSCULAR HEMOGLOBIN 29.8 PG (27.0-34.0); NEUT % 82.8 % (16.0-70.0); PLATELET COUNT 155 TH/MM3 (150-450); RED BLOOD COUNT 3.26 MIL/MM3 (4.00-5.30); RED CELL DISTRIBUTION WIDTH 14.3 % (11.6-17.2); WHITE BLOOD COUNT 12.5 TH/MM3 (4.0-11.0)
[2017-03-14 06:43] LABS: BICARBONATE 28.5 MEQ/L (21.0-32.0); MAGNESIUM 1.9 MG/DL (1.5-2.5); POTASSIUM 3.4 MEQ/L (3.5-5.1)
[2017-03-14] MEDS: POTASSIUM CHLOR 20 MEQ PREMIX 100 ML IV PRN ×2 (07:44→09:14)
[2017-03-14] MEDS: MAGNESIUM SULFATE INJ 2 GM in SODIUM CHLORIDE 0.9% INJ 100 ML IV PRN (08:25)
[2017-03-14] MEDS: SODIUM CHLORIDE 0.9% FLUSH 10 ML FLUSH IV FLUSH SCH ×2 (08:31→21:00)
[2017-03-14] MEDS: MULTIVITAMINS/MINERALS THERAPEUTIC TAB PO SCH ×2 (09:00→09:12)
[2017-03-14] MEDS: MUPIROCIN 2% OINT 22 GM TUBE EACH NARE SCH ×2 (09:00→21:00)
[2017-03-14] MEDS: FUROSEMIDE 40 MG/4 ML VIAL IV PUSH SCH (09:11)
[2017-03-14] MEDS: POLYETHYLENE GLYCOL 17 GM PKG PO SCH (09:11)
[2017-03-14] MEDS: MAGNESIUM HYDROXIDE SUSP 30 ML CUP PO SCH (09:11)
[2017-03-14] MEDS: ASPIRIN 81 MG CHEW TAB PO SCH (09:13)
[2017-03-14] MEDS: DOCUSATE SODIUM 100 MG CAP PO SCH ×2 (09:13→21:11)
[2017-03-14] MEDS: SERTRALINE HCL 100 MG TAB PO SCH (09:13)
[2017-03-14] MEDS: FENOFIBRATE 48 MG TAB PO SCH (09:14)
[2017-03-14] MEDS: TOLTERODINE TARTRATE 2 MG CAP LA PO SCH (09:14)
--- NOTE | 2017-03-14 13:50 | PD.CAR.PN ---
CVT Progress Note Subjective/Hospital Course: c/o incisional pain, confused 03/14 D/C CT Discharge planning Objective: Vital Signs Date Time Temp Pulse Resp B/P Pulse Ox O2 Delivery O2 Flow Rate FiO2 03/14/17 11:00 98.5 69 19 125/64 93 03/14/17 07:00 99.0 69 19 163/74 90 03/14/17 06:33 63 03/14/17 05:31 63 03/14/17 04:20 61 03/14/17 03:32 98.1 69 18 152/68 92 03/14/17 03:32 92 Nasal Cannula 4.00 03/14/17 03:00 68 03/14/17 02:00 74 03/14/17 01:00 63 03/14/17 00:00 64 03/13/17 23:20 98.1 74 20 155/66 92 03/13/17 23:20 92 Nasal Cannula 4.00 03/13/17 23:00 66 03/13/17 22:00 66 03/13/17 21:22 92 Nasal Cannula 4.00 03/13/17 21:00 66 03/13/17 20:00 70 03/13/17 19:40 98.8 70 18 145/65 92 03/13/17 19:40 92 Nasal Cannula 4.00 03/13/17 19:00 69 03/13/17 18:00 69 03/13/17 17:10 98.2 68 17 158/69 93 03/13/17 16:00 69 03/13/17 16:00 96 Nasal Cannula 6.00 03/13/17 16:00 98.4 51 18 141/64 94 Arterial Line 03/13/17 16:00 82 03/13/17 15:08 16 Labs: Laboratory Tests Test 03/14/17 05:08 White Blood Count 12.5 TH/MM3 (4.0-11.0) Red Blood Count 3.26 MIL/MM3 (4.00-5.30) Hemoglobin 9.7 GM/DL (11.6-15.3) Hematocrit 28.6 % (35.0-46.0) Mean Corpuscular Volume 87.8 FL (80.0-100.0) Mean Corpuscular Hemoglobin 29.8 PG (27.0-34.0) Mean Corpuscular Hemoglobin 34.0 % Concent (32.0-36.0) Red Cell Distribution Width 14.3 % (11.6-17.2) Platelet Count 155 TH/MM3 (150-450) Mean Platelet Volume 9.2 FL (7.0-11.0) Neutrophils (%) (Auto) 82.8 % (16.0-70.0) Lymphocytes (%) (Auto) 9.9 % (9.0-44.0) Monocytes (%) (Auto) 7.0 % (0.0-8.0) Eosinophils (%) (Auto) 0.1 % (0.0-4.0) Basophils (%) (Auto) 0.2 % (0.0-2.0) Neutrophils # (Auto) 10.4 TH/MM3 (1.8-7.7) Lymphocytes # (Auto) 1.2 TH/MM3 (1.0-4.8) Monocytes # (Auto) 0.9 TH/MM3 (0-0.9) Eosinophils # (Auto) 0.0 TH/MM3 (0-0.4) Basophils # (Auto) 0.0 TH/MM3 (0-0.2) CBC Comment DIFF FINAL Differential Comment Sodium Level 143 MEQ/L (136-145) Potassium Level 3.4 MEQ/L (3.5-5.1) Chloride Level 107 MEQ/L (98-107) Carbon Dioxide Level 28.5 MEQ/L (21.0-32.0) Anion Gap 8 MEQ/L (5-15) Blood Urea Nitrogen 17 MG/DL (7-18) Creatinine 0.80 MG/DL (0.50-1.00) Estimat Glomerular Filtration 69 ML/MIN (>89) Rate Random Glucose 125 MG/DL (74-106) Calcium Level 8.2 MG/DL (8.5-10.1) Magnesium Level 1.9 MG/DL (1.5-2.5) Result Diagram: 03/14/17 0508 03/14/17 0508 Ebonie Higgins MD March 14, 2017 13:50
[2017-03-14] MEDS: ACETAMINOPHEN 325 MG TAB PO PRN (18:45)
[2017-03-14] MEDS: SENNOSIDES 8.6 MG TAB PO SCH (21:11)
[2017-03-14] MEDS: ATORVASTATIN 40 MG TAB PO SCH (21:11)
[2017-03-15] VITALS (28 sets, daily range): BP systolic 125–145; BP diastolic 68–79; PULSE 61–80; RESP 18–20; TEMP 98.1–99.6; O2SAT 91–96
[2017-03-15] MEDS: ACETAMINOPHEN 325 MG TAB PO PRN (03:51)
[2017-03-15] MEDS: INSULIN ASPART SUPPLEMENTAL SCALE SQ SCH ×4 (05:27→22:21)
[2017-03-15] MEDS: PANTOPRAZOLE SOD 40 MG DELAYED RELEASE TAB PO SCH (05:28)
[2017-03-15] MEDS: TOLTERODINE TARTRATE 2 MG CAP LA PO SCH (08:56)
[2017-03-15] MEDS: FUROSEMIDE 40 MG/4 ML VIAL IV PUSH SCH (08:56)
[2017-03-15] MEDS: MAGNESIUM HYDROXIDE SUSP 30 ML CUP PO SCH (08:56)
[2017-03-15] MEDS: MULTIVITAMINS/MINERALS THERAPEUTIC TAB PO SCH ×2 (08:57)
[2017-03-15] MEDS: POLYETHYLENE GLYCOL 17 GM PKG PO SCH (08:57)
[2017-03-15] MEDS: FENOFIBRATE 48 MG TAB PO SCH (08:57)
[2017-03-15] MEDS: DOCUSATE SODIUM 100 MG CAP PO SCH ×2 (08:57→22:22)
[2017-03-15] MEDS: SERTRALINE HCL 100 MG TAB PO SCH (08:57)
[2017-03-15] MEDS: ASPIRIN 81 MG CHEW TAB PO SCH (08:57)
[2017-03-15] MEDS: SODIUM CHLORIDE 0.9% FLUSH 10 ML FLUSH IV FLUSH SCH ×2 (08:58→22:22)
[2017-03-15] MEDS: MUPIROCIN 2% OINT 22 GM TUBE EACH NARE SCH ×2 (09:00→21:00)
--- NOTE | 2017-03-15 13:41 | PD.CAR.PN ---
CVT Progress Note Subjective/Hospital Course: c/o incisional pain, confused 03/14 D/C CT Discharge planning 03/15 Wean Oxygen BM Discharge planning Objective: Vital Signs Date Time Temp Pulse Resp B/P Pulse Ox O2 Delivery O2 Flow Rate FiO2 03/15/17 13:00 79 03/15/17 12:03 66 03/15/17 11:00 95 Nasal Cannula 3.00 03/15/17 11:00 98.4 70 18 125/72 95 03/15/17 11:00 67 03/15/17 10:00 70 03/15/17 09:00 79 03/15/17 08:00 70 03/15/17 07:31 95 Nasal Cannula 3.50 03/15/17 07:00 66 03/15/17 07:00 97 Nasal Cannula 3.00 03/15/17 07:00 98.5 70 20 128/79 95 03/15/17 06:23 63 03/15/17 05:00 65 03/15/17 04:00 61 03/15/17 04:00 98.7 61 18 127/72 96 03/15/17 03:08 92 Nasal Cannula 3.50 03/15/17 03:08 65 03/15/17 02:00 69 03/15/17 01:00 69 03/15/17 00:06 69 03/14/17 23:54 99.3 69 18 145/73 92 03/14/17 23:54 92 Nasal Cannula 3.50 03/14/17 23:00 69 03/14/17 22:00 72 03/14/17 21:48 Nasal Cannula 3.50 03/14/17 21:00 69 03/14/17 20:00 99.3 69 18 145/73 92 03/14/17 20:00 92 Nasal Cannula 3.50 03/14/17 20:00 66 03/14/17 19:00 69 03/14/17 18:04 66 03/14/17 17:00 68 03/14/17 16:00 64 03/14/17 15:51 94 Nasal Cannula 4.00 03/14/17 15:51 98.9 67 17 145/71 94 03/14/17 15:00 65 03/14/17 14:00 72 Result Diagram: 03/14/17 0508 03/14/17 0508 Ebonie Higgins MD March 15, 2017 13:41
[2017-03-15] MEDS ORDERED: BISACODYL 10 MG SUPP RECTAL PRN (13:45)
[2017-03-15] MEDS: SENNOSIDES 8.6 MG TAB PO SCH (21:00)
[2017-03-15] MEDS: ATORVASTATIN 40 MG TAB PO SCH (22:20)
[2017-03-15] MEDS: oxyCODONE/ACETAMINOPHEN 5 MG/325 MG TAB PO PRN (22:22)
[2017-03-16] VITALS (12 sets, daily range): BP systolic 145–158; BP diastolic 76–82; PULSE 55–76; RESP 18; TEMP 98.1; O2SAT 94–97
[2017-03-16] MEDS: PANTOPRAZOLE SOD 40 MG DELAYED RELEASE TAB PO SCH (06:18)
[2017-03-16] MEDS: INSULIN ASPART SUPPLEMENTAL SCALE SQ SCH (06:18)
[2017-03-16] MEDS: MULTIVITAMINS/MINERALS THERAPEUTIC TAB PO SCH ×2 (09:00→09:34)
--- NOTE | 2017-03-16 09:22 | HHI.FF ---
Face to Face Verification Diagnosis: (1) Aortic stenosis Home Health Nursing Order: Medical education Wound care and dressing changes Nursing assessment with vital signs I have seen patient Marla Stanley on 03/16/17. My clinical findings support the need for the requested home health care services because: Deconditioned w/ increased weakness I certify that my clinical findings support that this patient is homebound because: Post-op weakness Ebonie Higgins MD March 16, 2017 09:22
--- NOTE | 2017-03-16 09:24 | HHI.DS ---
Discharge Summary Admission Date March 12, 2017 at 13:57 Discharge Date: March 16, 2017 Admitting Diagnosis (1) Aortic stenosis CBC/BMP: 03/14/17 0508 03/14/17 0508 Significant Findings Laboratory Tests Test 03/14/17 05:08 White Blood Count 12.5 TH/MM3 (4.0-11.0) Red Blood Count 3.26 MIL/MM3 (4.00-5.30) Hemoglobin 9.7 GM/DL (11.6-15.3) Hematocrit 28.6 % (35.0-46.0) Neutrophils (%) (Auto) 82.8 % (16.0-70.0) Neutrophils # (Auto) 10.4 TH/MM3 (1.8-7.7) Potassium Level 3.4 MEQ/L (3.5-5.1) Estimat Glomerular Filtration 69 ML/MIN (>89) Rate Random Glucose 125 MG/DL (74-106) Calcium Level 8.2 MG/DL (8.5-10.1) Hospital Course 03/14 D/C CT Discharge planning 03/15 Wean Oxygen BM Discharge planning 03/16 D/C home Discharge Disposition: Disch w/ Home Health Serv Discharge Instructions DIET: Follow Instructions for: Heart Healthy Diet Activities you can perform: Full Weight Bearing, Shower Only-No Bath Activities to avoid: Lifting/Bending, Strenuous Activity, Driving Follow up Referrals: Appointment for Follow Up Cardiology with Jena Mack MD Appt is at [place] [facility] on [address] [place], [place] [id number] Continued Medications: Amlodipine (Amlodipine) 2.5 Mg Tab 2.5 MG PO DAILY Blood Pressure Management #30 Ref 0 TAB Atenolol (Atenolol) 50 Mg Tab 50 MG PO DAILY Blood Pressure Management #30 Ref 0 TAB Atorvastatin (Atorvastatin) 40 Mg Tab 40 MG PO HS Cholesterol Management #30 Ref 0 TAB Calcium Carbonate (Calcium Carbonate) 1,500 Mg Tab Unknown Dose PO DAILY 1,500 mg calcium carbonate (600 mg elemental calcium) Calcium Supplement Ref 0 TAB Fenofibrate (Fenofibrate) 48 Mg Tab 48 MG PO DAILY #30 Ref 0 TAB Glimepiride (Glimepiride) 4 Mg Tab 4 MG PO BIDAC Take with breakfast or first main meal Blood Sugar Management #30 Ref 0 TAB Metformin (Metformin) 1,000 Mg Tab 1000 MG PO BIDPC With meals Blood Sugar Management #60 Ref 0 TAB Multiple Vitamins W/ Minerals (Multivitamin Adults) 1 Tab 1 TAB PO DAILY Nutritional Supplement Ref 0 TAB Oxybutynin ER 24 HR (Oxybutynin ER 24 HR) 5 Mg Tab 5 MG PO DAILY Overactive Bladder Ref 0 TAB Sertraline (Sertraline) 100 Mg Tab 100 MG PO DAILY #30 Ref 0 TAB Sitagliptin (Januvia) 100 Mg Tab 100 MG PO DAILY Blood Sugar Management #30 Ref 0 TAB Discontinued Medications: Losartan (Losartan) 100 Mg Tab 100 MG PO DAILY Blood Pressure Management #30 Ref 0 TAB Ebonie Higgins MD March 16, 2017 09:24
[2017-03-16] MEDS: DOCUSATE SODIUM 100 MG CAP PO SCH (09:34)
[2017-03-16] MEDS: FUROSEMIDE 40 MG/4 ML VIAL IV PUSH SCH (09:34)
[2017-03-16] MEDS: oxyCODONE/ACETAMINOPHEN 5 MG/325 MG TAB PO PRN (09:34)
[2017-03-16] MEDS: FENOFIBRATE 48 MG TAB PO SCH (09:34)
[2017-03-16] MEDS: TOLTERODINE TARTRATE 2 MG CAP LA PO SCH (09:34)
[2017-03-16] MEDS: SODIUM CHLORIDE 0.9% FLUSH 10 ML FLUSH IV FLUSH SCH (09:34)
[2017-03-16] MEDS: ASPIRIN 81 MG CHEW TAB PO SCH (09:34)
[2017-03-16] MEDS: MAGNESIUM HYDROXIDE SUSP 30 ML CUP PO SCH (09:35)
[2017-03-16] MEDS: POLYETHYLENE GLYCOL 17 GM PKG PO SCH (09:35)
[2017-03-16] MEDS: SERTRALINE HCL 100 MG TAB PO SCH (09:36)
== END 2017-03-16 12:02 | disposition home health service (06) | DRG 220 ==
LOC: HSDC 05:14 → EDSTATUS 07:30 → HSDI 13:57 → HCVR 14:35 → HCIN 03-13 17:28
PROVIDERS: ADMIT Thoracic Surgery (Cardiothoracic Vascular Surgery); ATTEND Thoracic Surgery (Cardiothoracic Vascular Surgery)
PROC: 5A1221Z Performance of Cardiac Output, Continuous (ICD-10-PCS; 2017-03-12)
PROC: 02RF0JZ Replacement of Aortic Valve with Synthetic Substitute, Open Approach (ICD-10-PCS; principal; 2017-03-12 08:44)
PROC: B24CZZ4 Ultrasonography of Pericardium, Transesophageal (ICD-10-PCS; 2017-03-12 08:44)
DX: I35.0 Nonrheumatic aortic (valve) stenosis (principal); I50.32 Chronic diastolic (congestive) heart failure
CPT/HCPCS: 36430; 71010; 76937; 80048; 82948; 83735; 85025; 85027; 86077; 86850; 86870; 86900; 86901; 86902; 86920; 86922; 88305; 88311; 93005; 93318; 94002; 94150; 94640; 94664; 94667; C1769; C9248; J0131; J0690; J1644; J1815; J1817; J1940; J2150; J2250; J2260; J2370; J2405; J2720; J2930; J3010; J3370; J3475; J3480; J7040; J7050; J7120; P9016; P9047